=== PATIENT | male | born 1985 | race Caucasian/White ===

== ENCOUNTER 2017-02-02 10:59 | Observation (INO) | payer OTHER, SELFPAY ==
[~2017-02-02 10:59] MED LIST: ATIVAN2 M1 PO; KLOR-CON M2020 MEQ PO; MAALOX MAXIMUM355 M1 PO; NORCO 5/3251 TAB PO; PHENERGAN25 M1 PO; PRILOSEC40 MG PO; PROMETHAZINE HC25 M3 PO; PROZAC40 MG PO; REGLAN10 MG PO; TRAZODONE100 MG PO; TYLENOL325 M2 PO; ZOFRAN4 M2 PO
[2017-02-02 11:38] LABS: BASO % 0.2 % (0-2); EOS % 0.2 % (0-7); HCT-HEMATOCRIT 43.2 % (36.0-53.5); HGB-HEMOGLOBIN 14.6 gm/dl (13.5-17.0); IMMATURE GRANULOCYTES ABSOLUTE 0.03 tho/cmm (0-0.03); IMMATURE GRANULOCYTES PERCENT 0.2 % (0-0.3); LYMPH % 15.1 % (20-45); LYMPH ABSOLUTE COUNT 2.4 tho/cmm (0.8-4.5); MCHC MEAN CORPUSCULAR HGB CONC 33.8 % (32.0-36.0); MCV (MEAN CELL VOLUME) 85.7 fl (82.0-96.0); MEAN PLATELET VOLUME 10.9 cmc (9.4-12.4); MONO % 9.9 % (0-12); MONOCYTE ABSOLUTE COUNT 1.6 tho/cmm (0.0-1.2); NEUTROPHILS % 74.4 % (40-80); PLATELET COUNT 300 tho/cmm (150-450); RED BLOOD COUNT 5.04 mil/cmm (4.40-5.70); RED CELL DISTRIBUTION WIDTH 13.6 % (12.4-16.4); WHITE BLOOD COUNT 16.1 tho/cmm (4.0-10.0)
[2017-02-02 11:54] LABS: ALBUMIN 4.1 g/dl (3.5-5.0); ALKALINE PHOSPHATASE 100 U/L (33-138); ALT/SGPT 35 U/L (12-78); ANION GAP 14 mmol/L (0-20); AST/SGOT 56 U/L (10-40); BILIRUBIN,TOTAL 0.5 mg/dl (0.0-1.5); BLOOD UREA NITROGEN 17 mg/dl (6-24); C-REACTIVE PROTEIN 0.7 mg/dl (0-0.9); CALCIUM 9.3 mg/dl (8.5-10.5); CARBON DIOXIDE-VENOUS 34 mmol/L (22-32); CHLORIDE 91 mmol/l (96-110); CREATININE 0.91 mg/dl (0.60-1.30); GLUCOSE 142 mg/dL (70-110); LIPASE 109 U/L (73-393); SODIUM 136 mmol/L (135-145); eGFR VALUE FOR BLACK >90 mL/Min
[2017-02-02 11:56] LABS: POTASSIUM 2.9 mmol/L (3.7-5.1)
[2017-02-02 13:30] LABS: URINE APPEARANCE CLEAR; URINE BILIRUBIN NEGATIVE (NEG); URINE BLOOD NEGATIVE (NEG); URINE COLOR YELLOW; URINE GLUCOSE (UA) NEGATIVE (NEG); URINE KETONE SMALL (NEG); URINE LEUKOCYTE ESTERASE NEGATIVE (NEG); URINE NITRITE NEGATIVE (NEG); URINE PROTEIN NEGATIVE (NEG)
[2017-02-03] MEDS ORDERED: TYLENOL325 M2 PO (12:16)
[2017-02-03] MEDS ORDERED: ZOFRAN4 M2 SL (12:17)
== END 2017-02-03 12:00 ==
LOC: EDMED 10:59 → EMR2 15:30 → CAR1 16:05
PROVIDERS: Physician Assistant; ADMIT Hospitalist
DX: R11.2 Nausea with vomiting, unspecified (principal); E87.6 Hypokalemia; F17.210 Nicotine dependence, cigarettes, uncomplicated; F12.10 Cannabis abuse, uncomplicated
CPT/HCPCS: C9113; G0378; J0780; J2270; J2405; J3480; J7030; Q9967